=== PATIENT | male | born 1950 | race Caucasian/White ===

== ENCOUNTER 2016-05-02 07:45 | Outpatient (RCR) | payer OTHER ==
[~2016-05-02 07:45] MED LIST: ASPIR-LOW81 MG PO; ASPIRIN 81M81 MG/TA2 PO; ASPIRIN E.C. 8181 MG PO; CEPHALEXIN500 M1 PO; CIPRO 500MG TA500 MG PO; COLACE 100100 MG/CAP PO; CRESTOR20 MG PO; FLOMAX 0.40.4 MG/CAP PO; LIPITOR 40MG TA40 MG PO; NORCO 325 MG-51 TAB PO; NORCO 325 MG-7.1 TAB PO; PERCOCET 325 MG1 TA2 PO; PHENERGAN 25 TA25 MG PO; PREDNISONE20 MG PO; PYRIDIUM200 M1 PO
== END 2016-05-02 09:09 | disposition home or self-care (01) ==
LOC: WSPT 07:45
DX: Z47.89 Encounter for other orthopedic aftercare (principal); M21.611 Bunion of right foot; M20.41 Other hammer toe(s) (acquired), right foot

== ENCOUNTER 2018-01-19 13:29 | Emergency (ER) | payer OTHER ==
[~2018-01-19] VITALS: Ht 182.9 cm; Wt 100.5 kg
[2018-01-19 13:32] VITALS: TEMP 97.8
[2018-01-19] MEDS ORDERED: NORCO 325 MG-51 TAB PO (15:20)
[2018-01-19 15:37] VITALS: BP 126/74; PULSE 66
== END 2018-01-19 15:38 | disposition home or self-care (01) ==
LOC: COL.ER 13:29
DX: S52.122A Displaced fracture of head of left radius, initial encounter for closed fracture (principal); S02.5XXA Fracture of tooth (traumatic), initial encounter for closed fracture; S01.511A Laceration without foreign body of lip, initial encounter; Z79.82 Long term (current) use of aspirin; W11.XXXA Fall on and from ladder, initial encounter; Y92.009 Unspecified place in unspecified non-institutional (private) residence as the place of occurrence of the external cause
CPT/HCPCS: Q4050

== ENCOUNTER 2019-01-19 16:10 | Emergency (ER) | payer OTHER ==
[~2019-01-19] VITALS: Ht 182.9 cm; Wt 101.8 kg
[2019-01-19 16:17] VITALS: TEMP 97.8
[2019-01-19 16:51] LABS: BASO % 0.5 % (0.0-2.0); EOS # 0.2 (0.0-0.7); EOS % 2.8 % (0-4.0); GRAN % 77.5 % (42.2-75.2); HEMATOCRIT 46.1 % (42.0-52.0); HEMOGLOBIN 15.8 g/dl (13.5-18.0); LYMPH % 12.7 % (20.0-51.0); MEAN CELL VOLUME 92 fl (80.0-100.0); MEAN CORPUSCULAR HEMOGLOBIN 32 pg (27.0-31.0); MEAN CORPUSCULAR HGB CONC 34 g/dl (33.0-37.0); MONO # 0.5 (0.1-0.6); MONO % 6.2 % (1.7-9.3); PLATELET COUNT 198 K/mm3 (130-400); RED BLOOD COUNT 5.02 M/mm3 (4.20-5.60)
[2019-01-19 17:00] LABS: ALBUMIN 4.7 gm/dL (3.5-5.0); BILIRUBIN,TOTAL 0.5 mg/dL (0.0-1.0); CALCIUM 9.9 mg/dL (8.4-10.2); CREATININE, serum 0.95 (0.66-1.25); POTASSIUM 4.4 mmol/L (3.4-5.0)
[2019-01-19 20:56] VITALS: BP 124/98; PULSE 61
== END 2019-01-19 20:56 | disposition home or self-care (01) ==
LOC: COL.ER 16:10
PROVIDERS: Emergency Medicine
DX: T18.128A Food in esophagus causing other injury, initial encounter (principal); K21.9 Gastro-esophageal reflux disease without esophagitis
CPT/HCPCS: J1610; J2704; J7040

== ENCOUNTER 2019-04-13 07:59 | Day surgery (SDC) | payer OTHER ==
[~2019-04-13] VITALS: Ht 182.9 cm; Wt 106.4 kg
[2019-04-13] MEDS ORDERED: PROTONIX 40MG T40 MG PO (08:13)
[2019-04-13] MEDS ORDERED: METAMUCIL3.4 GM/DOS PO (08:13)
[2019-04-13] MEDS ORDERED: MULTI VITAMINS1 TAB PO (08:14)
[2019-04-13] MEDS ORDERED: CIALIS20 MG PO (08:14)
[2019-04-13] MEDS ORDERED: B-12 500 MCG PO (08:15)
[2019-04-13 08:51] VITALS: BP 123/85; PULSE 50; TEMP 97.7
[2019-04-13 09:45] VITALS: BP 113/90; PULSE 46; TEMP 97.1
[2019-04-13 10:00] VITALS: BP 122/83; PULSE 48
--- NOTE | 2019-04-13 10:00 | NUR ---
9241 PT TO [facility] FROM EGD SUITE PER CART. STANDS WITHOUT DIFFICULTY, AMBULATES TO CHAIR WITH STANDBY ASSIST. DENIES DIZZINES OR NAUSEA. ALERT AND ORIENTED. REPORT TAKEN FROM CHANELLE GATES. VITAL SIGNS TAKEN AND WITHIN NORMAL LIMITS. DR AT BEDSIDE TO SPEAK WITH PATIENT. OFFER COFFEE, PT ACCEPTS. COFFEE GIVEN PER PT REQUEST. RESTING COMFORTABLY IN CHAIR. NO COMPLAINTS OF PAIN, N/V.
[2019-04-13 10:15] VITALS: BP 122/80; PULSE 46
--- NOTE | 2019-04-13 10:26 | NUR ---
1015 DISMISSAL INSTRUCTIONS GIVEN TO PATIENT. HARD COPY AND EXPLAINED. PT DENIES QUESTIONS. SIGNS AND VERBALIZES UNDERSTANDING. 1022 IV IN RIGHT HAND DISCONTINUED. SITE WITOUT REDNESS OR SWELLING. SECURED WITH COTTON SWAB AND COBAN. 1030 PATIENT ESCORTED TO CAR WITH MASTER FIRE CONTROL TECHNICIAN VIA WHEELCHAIR BY A LARISA GATES.
== END 2019-04-13 10:30 | disposition home or self-care (01) ==
LOC: SDCO 07:59
DX: K21.0 Gastro-esophageal reflux disease with esophagitis (principal); K22.70 Barrett's esophagus without dysplasia; K31.7 Polyp of stomach and duodenum; K44.9 Diaphragmatic hernia without obstruction or gangrene; Z87.891 Personal history of nicotine dependence; Z85.46 Personal history of malignant neoplasm of prostate
CPT/HCPCS: J2704; J3010; J7120

== ENCOUNTER 2019-08-06 12:58 | Day surgery (SDC) | payer OTHER ==
[~2019-08-06] VITALS: Ht 190.5 cm; Wt 107.7 kg
[~2019-08-06 12:58] MED LIST changes: +B-12 500 MCG PO; +CIALIS20 MG PO; +METAMUCIL3.4 GM/DOS PO; +MULTI VITAMINS1 TAB PO; +PROTONIX 40MG T40 MG PO
[2019-08-06 14:31] VITALS: BP 144/82; PULSE 55; TEMP 97.3
[2019-08-06] MEDS ORDERED: MYRBETR50MG PO (14:47)
[2019-08-06 17:05] VITALS: BP 157/66; PULSE 50
[2019-08-06 17:20] VITALS: BP 134/59; PULSE 57
[2019-08-06 17:29] VITALS: BP 157/66; PULSE 52; TEMP 97.6
== END 2019-08-06 17:35 | disposition home or self-care (01) ==
LOC: SDCO 12:58
DX: N32.89 Other specified disorders of bladder (principal); N30.41 Irradiation cystitis with hematuria; K21.9 Gastro-esophageal reflux disease without esophagitis; Z11.59 Encounter for screening for other viral diseases; Z90.89 Acquired absence of other organs; Z85.46 Personal history of malignant neoplasm of prostate; Z90.79 Acquired absence of other genital organ(s); Z87.891 Personal history of nicotine dependence; Z92.3 Personal history of irradiation; Z79.899 Other long term (current) drug therapy
CPT/HCPCS: J0690; J2405; J2704; J3010; J7120

== ENCOUNTER 2021-06-06 19:47 | Observation (INO) | payer OTHER ==
[~2021-06-06] VITALS: Ht 182.9 cm; Wt 110.3 kg
[2021-06-06] VITALS (7 sets, daily range): BP systolic 100–127; BP diastolic 45–67; PULSE 48–77; TEMP 97.7–98.7
[~2021-06-06 19:47] MED LIST changes: +MYRBETR50MG PO
[2021-06-06] MEDS ORDERED: XALATAN EYE DROPS OD (20:20)
[2021-06-07] VITALS (7 sets, daily range): BP systolic 100–125; BP diastolic 46–64; PULSE 50–55; TEMP 98.1–98.8
== END 2021-06-07 17:40 | disposition home or self-care (01) ==
LOC: SURG 19:47
PROVIDERS: ADMIT Urology
DX: N30.41 Irradiation cystitis with hematuria (principal); Z90.79 Acquired absence of other genital organ(s); Z85.46 Personal history of malignant neoplasm of prostate; Z87.891 Personal history of nicotine dependence
CPT/HCPCS: G0378; J0690; J2250; J3480; J7120